=== PATIENT | male | born 1960 | race Caucasian/White ===

== ENCOUNTER 2022-04-18 07:57 | Outpatient (CLI) | payer BC ==
[2022-04-18] MEDS ORDERED: Iopamidol 300 61% 100 ML VIAL FS ONE (13:26)
== END 2022-04-18 07:58 | disposition home or self-care (01) ==
LOC: CSHCT 07:57
PROVIDERS: ATTEND Registered Nurse Community Health
DX: R91.8 Other nonspecific abnormal finding of lung field (principal); R93.89 Abnormal findings on diagnostic imaging of other specified body structures; R05.8 Other specified cough; A15.0 Tuberculosis of lung
CPT/HCPCS: 71260; Q9967